=== PATIENT | male | born 1955 | race Caucasian/White ===

== ENCOUNTER → 2016-12-12 | Outpatient (CLI) | payer OTHER ==
--- NOTE | 2016-12-12 11:05 | RAD ---
HISTORY: Chest pain Study: Chest two-view Comparison: None Findings: The trachea is midline. The cardiac silhouette is unremarkable. The lungs are clear without focal infiltrate or effusion. The bony thorax is unremarkable. IMPRESSION: 1. No acute cardiopulmonary disease. Reported By:
== END ==
LOC: RAD 10:34
PROVIDERS: ATTEND Nurse Practitioner Family
DX: R07.89 Other chest pain (principal); R20.0 Anesthesia of skin
CPT/HCPCS: 71020

== ENCOUNTER 2016-12-19 11:18 | Observation (INO) | payer OTHER ==
[2016-12-19 13:34] LABS: BASOPHILS % (AUTO) 0.4 % (0.2-1.0); EOSINOPHILS # (AUTO) 0.1 x10^3/uL (0.0-0.2); EOSINOPHILS % (AUTO) 2.2 % (0.9-2.9); HEMATOCRIT 45.6 % (42.0-54.0); HEMOGLOBIN 15.8 g/dL (13.5-18.0); LYMPHOCYTES # (AUTO) 1.4 X10^3/uL (1.3-2.9); MEAN CORPUSCULAR HEMOGLOBIN 31.4 pg (27.0-34.0); MEAN CORPUSCULAR HGB CONC 34.6 g/dL (33.0-35.0); MEAN CORPUSCULAR VOLUME 90.9 fL (80.0-100.0); MEAN PLATELET VOLUME 9.4 fL (7.4-11.0); MONOCYTES # (AUTO) 0.6 x10^3/uL (0.3-0.8); MONOCYTES % (AUTO) 11.6 % (0.0-13.0); NEUTROPHILS # (AUTO) 3.1 x10^3/uL (2.2-4.8); NEUTROPHILS % (AUTO) 58.8 % (42.0-75.0); PLATELET COUNT 155 X10^3/uL (150.0-450.0); RED BLOOD COUNT 5.02 X10^6/uL (4.7-6.0); RED CELL DISTRIBUTION WIDTH 13.1 % (11.6-16.5); WHITE BLOOD COUNT 5.3 X10^3/uL (3.6-10.0)
[2016-12-19 13:45] LABS: ALANINE AMINOTRANSFERASE 112 Units/L (12-78); ALBUMIN 3.6 g/dL (3.4-5.0); ALKALINE PHOSPHATASE 109 Units/L (46-116); ASPARTATE AMINO TRANSFERASE 80 Units/L (15-37); BLOOD UREA NITROGEN 9 mg/dL (7-18); CALCIUM 8.9 mg/dL (8.5-10.1); CHLORIDE 107 mmol/L (98-107); CREATININE 0.94 mg/dL (0.70-1.30); GLUCOSE 105 mg/dL (65-99); MAGNESIUM 2.2 mg/dL (1.7-2.9); SODIUM 143 mmol/L (136-145); TOTAL PROTEIN 8.2 g/dL (6.4-8.2); eGFR BLACK RACES > 60 (>60); eGFR NON BLACK RACES > 60 (>60)
[2016-12-19 13:59] LABS: CREATINE KINASE 187 Units/L (39-308); CREATINE KINASE MB 1.9 ng/mL (0-4.0); TROPONIN I < 0.02 ng/mL (0-1.5)
[2016-12-19] MEDS: PROTONIX INJ 40 MG VIAL IVP SCH (14:00)
[2016-12-19 14:22] VITALS: BMI 26.6
[2016-12-19] MEDS ORDERED: PREVNAR 13 IM ONE ×2 (14:22→16:54)
--- NOTE | 2016-12-19 14:28 | RAD ---
History: Left chest wall pain Study: Portable AP upright chest Comparison: December 12, 2016 Findings there is no little change. There are mildly increased diffuse interstitial lung markings. T he heart size is normal. There is no edema or effusion. Impression: No evidence for acute cardiopulmonary disease Reported By:
[2016-12-19] MEDS ORDERED: NS 100 ML IV 100 ML IV ONE (15:34)
--- NOTE | 2016-12-19 16:53 | CT ---
History: Left chest wall pain Study: CTA chest with contrast. Sagittal and coronal MIPS of the pulmonary arteries were displayed. Findings: The lungs are clear and there is no pleural effusion or pneumothorax. No pulmonary embolus is demonstrated. The visualized upper abdomen is unremarkable. There is no mediastinal or hilar diego nopathy. The lungs are hyperinflated. No significant bony abnormality is demonstrated. Impression: 1. No evidence for pulmonary embolus 2. COPD Reported By:
[2016-12-19] MEDS ORDERED: XANAX PO PRN (18:33)
[2016-12-19] MEDS ORDERED: NORCO 10/325 TAB PO PRN (18:33)
--- NOTE | 2016-12-19 18:40 | DR.H&P ---
H&P - History & Physical for Day of: H&P Date: 12/19/16 - Chief Complaint Chief Complaint: CHEST PAIN - Allergies Allergies/Adverse Reactions: Allergies Allergy/AdvReac Type Severity Reaction Status Date / Time MS No Known Drug Allergy Allergy Verified 12/19/16 13:08 [No Known Drug Allergy] - History of Present Illness History of Present Illness: PT IS 61 [address] ADMITTED FROM DR LYNCH OFFICE AFTER PRESENTING WITH CO LEFT CHEST PAIN WITH COSTA. PT STATES PAIN IS CENTRAL AND RADIATES FROM LEFT SHOULDER THROUGH HIS PAIN AND LEFT ARM. PT HAS LEFT CHEST WALL TENDERNESS AND LEFT CHEST APPEARS ENLARGED COMPARED WITH RIGHT CHEST. PT HAS PRIOR LABS, EKG AND CXR WITHOUT ACUTE FINDINGS. PT WAS TREATED FOR MUSCULOSKELETAL PAIN WITHOUT IMPROVEMENT. PLAN TO ADMIT TO R/O CARDIAC RELATED CP. WILL MRI C SPINE AND LEFT SHOULDER DUE TO REFERRED LEFT SHOULDER AND NECK PAIN. PLAN TO ADMIT FOR SERIAL CE'S AND EKG'S, CTA CHEST RO PE - Past Medical History Past Medical History: COPD - Past Surgical History Surgical History: Ortho Surgery - Family History Family Medical History: Diabetes Mellitus, Cancer, [place], Coronary Artery Disease, Heart Failure, Hypertension - Social History Does patient currently use any type of tobacco product: Yes Have you used tobacco products in the last 12 months: Yes Type of Tobacco Use: Cigarettes How many years tobacco product used: 40 Does any household member use tobacco: Yes Alcohol Use: Occasionally Drug Use: None - Medications Home Medications: NK [NK] 12/19/16 [History Confirmed 12/19/16] - Review of Systems Constitutional: Weakness, Malaise Eyes: No Symptoms Reported ENT: No Symptoms Reported Respiratory: SOB with Excertion Cardiovascular: Chest Pain Gastrointestinal: No Symptoms Reported Genitourinary: No Symptoms Reported Musculoskeletal: Shoulder Pain, Neck Pain, Other (CHEST WALL PAIN) Skin: No Symptoms Reported Neurological: No Symptoms Reported - Physical Exam Vital Signs: Temperature 97.8 F Pulse Rate [Right Brachial] 60 Respiratory Rate 20 Blood Pressure [Right Arm] 122/70 O2 Sat by Pulse Oximetry 96 Oriented: Normal Eyes: Normal Ear: Normal Nose: Normal Throat: Normal Respiratory: Clear Throughout Cardiovascular: Normal : Normal Auscultation: Bowel Sounds: Normal Palpation: Normal Tenderness: Normal Skin: Normal Musculoskeletal: Tender (CSPINE, LEFT SHOULDER LEFT ANTERIOR CHEST WALL) Mood Description: Calm Speech Pattern: Clear - Assessment/Plan (1) Chest pain Qualifiers: Chest pain type: C Ischemic chest pain type: I Status: Acute Plan: ADMIT, CTA CHEST R/O PE. SERIAL CARDIAC ENZYMES, EKG'S. CBC CMP UA ON ADMISSION. 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 PAIN CONTROL, SOLU MEDROL IV X 3 DOSES (4) Left shoulder pain Qualifiers: Chronicity: C Status: Acute Plan: MRI LEFT SHOULDER
[2016-12-19 19:50] LABS: CREATINE KINASE 146 Units/L (39-308); CREATINE KINASE MB 1.5 ng/mL (0-4.0); TROPONIN I < 0.02 ng/mL (0-1.5)
[2016-12-19] MEDS ORDERED: COLACE CAP 100 MG PO SCH (21:00)
[2016-12-19] MEDS: SOLU-Medrol 125 MG VIAL IVP SCH ×2 (21:21→21:40)
[2016-12-20 01:27] LABS: CKMB % 0.9 % (<4); CREATINE KINASE 127 Units/L (39-308); CREATINE KINASE MB 1.2 ng/mL (0-4.0); TROPONIN I < 0.02 ng/mL (0-1.5)
[2016-12-20 05:24] LABS: CHOL/HDL RATIO 3.8 (0.0-5.0)
[2016-12-20] MEDS: SOLU-Medrol 125 MG VIAL IVP SCH (06:10)
[2016-12-20] MEDS: PROTONIX INJ 40 MG VIAL IVP SCH (09:55)
[2016-12-20 13:45] VITALS: BP 129/73
--- NOTE | 2016-12-20 15:42 | MRI ---
HISTORY: Neck pain with radiculopathy. Study: MRI cervical spine without contrast. Comparison: None. Technique: Multiplanar multisequence MRI of the cervical spine was obtained utilizing standard depar tmental protocol. Findings: The visualized posterior fossa appears normal. No cerebellar tonsillar ectopia. Multilevel disc vic ccation with mild/moderate disk height loss at C6-C7. Associated type 2 Modic endplate changes. The visualized bone marrow signal is otherwise normal. No acute fracture or listhesis. The visualized sp inal cord demonstrates normal course, caliber, and signal characteristics. C2 -- C3: No significant disc bulge, neural foraminal narrowing, or spinal canal stenosis. C3 -- C4: No significant disc bulge, neural foraminal narrowing, or spinal canal stenosis. C4 -- C5: Broad-based disk bulge with associated uncovertebral hypertrophy causing moderate bilatera l neural foraminal narrowing. Spinal canal stenosis to 10 mm. C5 -- C6: Broad-based disk bulge with associated uncovertebral hypertrophy causing mild bilateral ne ural foraminal narrowing. No significant spinal canal stenosis. C6 -- C7: Broad-based disk bulge with associated uncovertebral hypertrophy causing severe right and moderate left neural foraminal narrowing. Spinal canal stenosis to 11 mm. C7 -- T1: No significant disc bulge, neural foraminal narrowing, or spinal canal stenosis. IMPRESSION: Multilevel degenerative changes of the cervical spine, which are worse at C4 through C7 with broad-b ased disc bulges and associated uncovertebral hypertrophy causing mild to severe neural foraminal na rrowing. Multilevel spinal canal stenosis to 10 mm. Reported By:
--- NOTE | 2016-12-20 18:39 | MRI ---
MR left shoulder without contrast Indication: Left shoulder pain. Numbness and tingling. Technique: Multiplanar multi sequence imaging through the left shoulder without contrast. Comparison: Chest CT and radiographs from December 19, 2016 Findings: Bone marrow signal is normal with a type 2 acromion. Mild AC joint and glenohumeral joint DJD noted. Neurovascular structures appear normal. Small subacromial and subdeltoid bursal fluid not ed. Mild supraspinatus tendinosis seen. No large effusion seen. Minimal fraying of the footprint of the infraspinatus noted on coronal image 12. Small intrasubstance footprint tear possible. High sign al seen in superior glenoid labrum, see coronal images 11-8 suggesting small slap tear. Biceps 10 is probably intact with minimal tendinosis. Subscapularis is intact with minimal tendinosis. Impression: 1. Rotator cuff diffuse tendinosis with small focal footprint tear at the infraspinatus insertion guerrero ggested, probably intra substance. 2. Mild subacromial/subdeltoid bursitis. 3. Small slap tear is superior glenoid labrum. 3. Biceps tendinosis. Reported By:
== END 2016-12-20 14:30 | disposition home or self-care (01) ==
LOC: MED/SURG 11:18
PROVIDERS: ADMIT Internal Medicine; ATTEND Internal Medicine
PROC: 3E0234Z Introduction of Serum, Toxoid and Vaccine into Muscle, Percutaneous Approach (ICD-10-PCS; principal; 2016-12-19)
DX: R07.89 Other chest pain (principal); J44.9 Chronic obstructive pulmonary disease, unspecified; M25.512 Pain in left shoulder; M50.320 Other cervical disc degeneration, mid-cervical region, unspecified level; R06.09 Other forms of dyspnea; Z23 Encounter for immunization; S43.432A Superior glenoid labrum lesion of left shoulder, initial encounter; M75.52 Bursitis of left shoulder; X58.XXXA Exposure to other specified factors, initial encounter
CPT/HCPCS: 36415; 71010; 71275; 72141; 73221; 80053; 80061; 82550; 82553; 83735; 84484; 85025; 85378; 85610; 85730; 93005; 93010; 94760; A4216; C9113; 90670; G0378; J2930

== ENCOUNTER → 2016-12-26 | Outpatient (CLI) | payer OTHER ==
--- NOTE | 2016-12-26 14:49 | US ---
Examination: Bilateral diagnostic mammogram and left breast ultrasound. Clinical history: Left chest wall swelling. Technique: Multiple digital images of both breasts were obtained. Targeted left breast ultrasound wa s also obtained evaluating the area of clinical concern in the left breast. Comparison: None available. Findings: The breasts are composed predominantly of adipose tissue. A benign-appearing calcification is presen t in the left breast. No mammographic abnormality is evident in the area of clinical concern in the left breast. No suspicious mass, area of architectural distortion or suspicious cluster of microcalcifications is noted. Targeted left breast ultrasound evaluating the area of clinical concern in the superior medial aspec t of the left breast reveals a 4 mm echogenic structure with posterior acoustic shadowing seen at th e 11 o'clock position, correlating with a benign-appearing calcification seen in this location on th e mammogram. A mildly enlarged 0.5 x 0.6 x 0.8 cm benign-appearing fatty replaced left internal mammary chain lym ph node is also noted, likely reactive in nature to an inflammatory or infective process. Comparison with a CT angiogram of the chest dated 12/19/[address] correlate. No additional suspicious cystic or solid mass is noted. Impression: 1. Benign findings in the left breast, as described above. No mammographic or sonographic evidence o f malignancy. BI-RADS category 2-benign findings. Recommend clinical management. Diagnostic CAD was utilized and reviewed. * 0 (ZERO) - ASSESSMENT INCOMPLETE; ADDITIONAL IMAGING IS NEEDED. * 0C - ASSESSMENT INCOMPLETE, NEEDS ADDITIONAL IMAGING EVALUATION AND/OR PRIOR MAMMOGRAMS FOR COMPAR MARTY. * 1/1 (ONE) - NEGATIVE. * 2/II (TWO) - BENIGN FINDINGS. * 3/III (THREE) - PROBABLY BENIGN FINDING; SHORT INTERVAL FOLLOW-UP SUGGESTED. * 4/IV (FOUR) - SUSPICIOUS ABNORMALITY; BIOPSY SHOULD BE CONSIDERED. * 5/V - HIGHLY SUSPICIOUS OF MALIGNANCY; BIOPSY SHOULD BE PERFORMED. * 6/IV - KNOWN BIOPSY PROVEN MALIGNANCY-APPROPRIATE ACTION SHOULD BE TAKEN. A NEGATIVE X-RAY REPORT SHOULD NOT DELAY BIOPSY IF A DOMINANT OR CLINICALLY SUSPICIOUS MASS IS PRESENT; 4 TO 8 PERCENT OF CANCERS ARE NOT IDENTIFIED BY X-RAY. A NEGATIVE REPORT MAY REINFORCE THE CLINICAL IMPRESSION. ADENOSIS AND DENSE BREASTS MAY OBSCURE AN UNDERLYING NEOPLASM. Reported By:
== END | disposition home or self-care (01) ==
LOC: RAD 13:14
PROVIDERS: ATTEND Nurse Practitioner Family
DX: Z80.3 Family history of malignant neoplasm of breast (principal); R07.89 Other chest pain; R59.0 Localized enlarged lymph nodes
CPT/HCPCS: 76642; 77066

== ENCOUNTER 2017-10-13 21:27 | Emergency (ER) | payer OTHER ==
[2017-10-13 21:37] VITALS: BP 151/68; BMI 24.1
[2017-10-13] MEDS ORDERED: KEFLEX CAP 500 MG PO ONE ×2 (22:49→22:52)
--- NOTE | 2017-10-13 22:49 | DR.GENAD ---
HPI - PCP Primary Care Physician: BRIGIDO ONEAL - HPI Comment HPI Comment: PATIENT SAID IT HAPPEN BEFORE COMING TO ED. TD ONE YEAR AGO. - Complaint/Symptoms Chief Complaint Doctors Comments: CRUSH INJURY RT INDEX FINGER. 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 Chief Complaint:: CUT TIP OF FINGER ON MACHINE AT WORK Self Treatment fo Chief Complaint: 2 ALEVE - Nurses notes reviewed Nurses Notes Review: Yes - Source History Provided: Patient - Mode of Arrival Mode of Arrival: Ambulatory - Timing Onset of Chief Complaint: 10/13/17 Came on: Suddenly - Duration Duration: Constant Duration: Hours - Severity Severity: Moderate PMH - PMH Past Medical History: Yes Past Medical History: Anxiety, Depression, Migraines, Headaches Past Surgical History: Yes Surgical History: Ortho Surgery Past Surgical History Comment: LEFT KNEE X 2. BONE SPUR LEFT SHOULDER. LEFT PINKY FINGER. ARTHOSCOPY BILAT KNEE - Family History History of Family Medical Conditions: Yes Family Medical History: Diabetes Mellitus, [place], Sudden Cardiac , Hypertension - Social History Does patient currently use any type of tobacco product: Yes Have you used tobacco products in the last 12 months: Yes Type of Tobacco Use: Cigarettes Does any household member use tobacco: No Alcohol Use: None Do you use any recreational Drugs:: No Lives With: Alone Lives Where: Home - infectious screening In the last 2 months have you had wt loss of >10#?: NO Have you had fever, night sweats or hemotysis?: No Have you traveled outside the country in the last 6 months?: No Isolation: Standard ROS - Review of Systems Constitutional: No Symptoms Reported Eyes: No Symptoms Reported ENTM: No Symptoms Reported Respiratoy: No Symptoms Reported Cardiovascular: No Symptoms Reported Gastrointestinal/Abdominal: No Symptoms Reported Genitourinary: No Symptoms Reported Neurological: No Symptoms Reported Musculoskeletal: Right, Hand (INDEX FINGER, CRUSH INJURY.) Integumentary: Other (2CM LACERATION RT INDEX FINGER.) Hematologic/Lymphatic: No Symptoms Reported Endocrine: No Symptoms Reported All Other Systems: Reviewed and Negative PE - Vital Signs Vitals: Temperature 98.9 F Pulse Rate 57 Respiratory Rate 20 Blood Pressure [] 129/73 Blood Pressure 151/68 O2 Sat by Pulse Oximetry 98 - General Limitations: No Limitations General Appearance: Alert - Head Head Exam: Normal Inspection - Eyes Eye exam: Normal Appearance - ENT ENT Exam: Normal External Ear Exam External Ear Exam: Normal External Inspection TM/Canal Exam: Bilateral Normal Nose Exam: Normal Nose Exam Mouth Exam: Normal Inspection Throat Exam: Normal Inspection - Neck Neck Exam: Normal Inspection - Chest Chest Inspection: Symmetric Chest Wall Rise - Respiratory Respiratory Exam: Normal Lung Sounds Bilat Respiratory Exam: Bilateral Clear to Auscultation - Cardiovascular Cardiovascular Exam: Regular Rate, Normal Rhythm, Normal Heart Sounds - Abdominal Exam Abdominal Exam: Normal Inspection - Extremities Extremities Exam: Tenderness (RT INDEX FINGER DISTAL FINGER WITH NAIL BED INJURY AND LAC 2CM CORNER AREA OF NAIL. BLOOD UNDER NAIL.) - Back Back Exam: Normal Inspection - Neurologic Neurological Exam: Alert - Psychiatric Psychiatric Exam: Normal Affect, Normal Mood - Skin Skin Exam: Erythema MDM - Additional Information Additional Information Obtained From: Family - Differential Diagnosis Differential Diagnosis: CRUSH INJURY RT INDEX FINGER, FX RT INDEX FINGER, LACERATION RT INDEX FINGE Course - Treatment Treatment: SEE ORDERS, LACERTATION CLOSE. - Education/Counseling Education/Counseling: Patient, Family, Education Educated On: Treatment, Diagnosis, Needs for Follow Up ROR - XRAY XRAY Interpreted by: Self XRAY Findings: FINGER FRACTURE XRAY DISCUSS WITH PATIENT. Procedures - Laceration/Wound Repair Right Finger Wound Length (cm): 2 Wound's Depth, Shape: Linear Wound Explored: clean Betadine Prep?: Yes Anesthesia: 2% Lidocaine Volume Anesthetic (ccs): 3 Wound Debrided: minimal Wound Repaired With: sutures Suture Size/Type: 3:0, [place] Number of Sutures: 3 Layer Closure?: No Sterile Dressing Applied?: Yes Splint Applied?: Yes Sling Applied?: No - Diagnosis Discharge Problem: Crush injury Laceration of right index finger Qualifiers: Encounter type: initial encounter Damage to nail status: with damage Foreign body presence: with foreign body Qualified Code(s): S61.320A - Laceration with foreign body of right index finger with damage to nail, initial encounter - Discharge Plan Disposition: 01 HOME, SELF-CARE Condition: Stable Prescriptions: Cephalexin [KEFLEX CAP 500 MG *] 500 mg PO TID #30 cap Ibuprofen [MOTRIN TAB 800 MG *] 800 mg PO Q8H PRN #20 tab PRN Reason: Pain/Inflammation - Follow ups/Referrals Follow ups/Referrals: BRIGIDO ONEAL [Primary Care Provider] - 3 days - Instructions Instructions: Finger Fracture, [id number], Laceration Care, Adult, Easy-to- Read Additional Instructions: SUTURE OUT IN 10 DAYS.
[2017-10-13] MEDS ORDERED: MOTRIN TAB 800 MG PO ONE ×2 (22:50→22:52)
--- NOTE | 2017-10-14 01:04 | RAD ---
Right hand, three views Indication: Cut tip of finger on machine Comparison: None Findings: There is a soft tissue laceration to the distal index finger. There is mildly displaced ass ociated fracture of the distal phalanx of the index finger, extending transversely through the proxim al shaft. No radiopaque foreign body is identified. The remainder of the right hand is unremarkable. There is an age-indeterminate but possibly subacute intra-articular fracture of the distal radius. Impression: Soft tissue injury to the distal index finger with mildly associated fracture of the distal phalanx, as above. Age-indeterminate but possibly subacute fracture of the distal radius. Correlation recommended. Reported By:
== END 2017-10-13 23:42 | disposition home or self-care (01) ==
LOC: ER 21:48
PROC: 0XQNXZZ Repair Right Index Finger, External Approach (ICD-10-PCS; principal; 2017-10-13)
DX: S67.190A Crushing injury of right index finger, initial encounter (principal); S61.320A Laceration with foreign body of right index finger with damage to nail, initial encounter; W31.9XXA Contact with unspecified machinery, initial encounter; Y92.69 Other specified industrial and construction area as the place of occurrence of the external cause
CPT/HCPCS: 12001; 73130; 99283

== ENCOUNTER 2022-04-03 18:11 | Observation (INO) ==
[2022-04-03] MEDS ORDERED: NS 1,000 ML IV 1,000 ML IV ONE (18:28)
[2022-04-03] MEDS ORDERED: NS 1,000 ML IV 1,000 ML ONE (18:29)
[2022-04-03 18:41] LABS: BILIRUBIN,URINE NEGATIVE (NEGATIVE); BLOOD/HEMOGLOBIN,URINE NEGATIVE (NEGATIVE); GLUCOSE, URINE 4+ (NEGATIVE); KETONES,URINE NEGATIVE (NEGATIVE); LEUKOCYTE ESTERASE ,URINE NEGATIVE (NEGATIVE); NITRITES,URINE NEGATIVE (NEGATIVE); PROTEIN,URINE NEGATIVE (NEGATIVE); UROBILINOGEN,URINE NORMAL (NORMAL)
[2022-04-03 19:07] LABS: APPEARANCE,URINE CLEAR (CLEAR); COLOR,URINE YELLOW (YELLOW)
[2022-04-03] MEDS ORDERED: NovoLIN R (or HumuLIN R) SUBCUT PRN (19:50)
--- NOTE | 2022-04-03 19:53 | DR.HYPOGLY ---
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 He has polydipsia, polyuria, anorexia, blurred vision, and weight loss. He denies previous knowledge of being diabetic. Complaint Chief Complaint:: PT STATES MY BLOOD SUGAR IS HIGH > 500 AND BRIGIDO CALLED ME AND TOLD ME TO COME NOW, BR Self Treatment fo Chief Complaint: NONE COVID-19 Coronavirus risk:travel/contact w/high risk person: No Has patient experienced Coronavirus symptoms: No Source History Provided: Patient Mode of Arrival Mode of Arrival: Ambulatory Timing Onset of Chief Complaint: 01/16/22 PMH PMH Past Medical History: Yes Past Medical History: Alzheimers, Anxiety, Depression, Migraines and Headaches Past Surgical History: Yes Surgical History: Ortho Surgery Family History History of Family Medical Conditions: Yes Family Medical History: Diabetes Mellitus and Hypertension Social History Does patient currently use any type of tobacco product: No Have you used tobacco products in the last 12 months: No Type of Tobacco Use: None Does any household member use tobacco: No Alcohol Use: None Do you use any recreational Drugs:: No Lives With: Family Lives Where: Home Travel Risk Coronavirus risk:travel/contact w/high risk person: No Has patient experienced Coronavirus symptoms: No Infectious screening In the last 2 months have you had wt loss of >10#?: NO Have you had fever, night sweats or hemotysis?: No Have you traveled outside the country in the last 6 months?: No Isolation: Standard ROS Review of Systems Constitutional: See HPI Eyes: See HPI ENTM: See HPI Respiratoy: No Symptoms Reported Cardiovascular: No Symptoms Reported Gastrointestinal/Abdominal: No Symptoms Reported Genitourinary: See HPI Neurological: No Symptoms Reported Musculoskeletal: No Symptoms Reported Integumentary: No Symptoms Reported Hematologic/Lymphatic: No Symptoms Reported Endocrine: No Symptoms Reported Psychiatric: No Symptoms Reported All Other Systems: Reviewed and Negative PE Vital Signs Vitals: Temperature 96.5 F Pulse Rate 88 Respiratory Rate 20 Blood Pressure [Right Arm] 147/81 Blood Pressure 135/67 O2 Sat by Pulse Oximetry 94 General Limitations: No Limitations General Appearance: Alert and In No Apparent Distress Eyes Eye exam: Normal Appearance and EOMI ENT ENT Exam: Normal Exam, Normal Oropharynx, Normal External Ear Exam and Mucous Membranes Moist Neck Neck Exam: Normal Inspection, Full ROM and Trachea Midline Chest Chest Inspection: Normal Inspection and Symmetric Chest Wall Rise Respiratory Respiratory Exam: Normal Lung Sounds Bilat Cardiovascular Cardiovascular Exam: Regular Rate, Normal Rhythm, Normal Heart Sounds, +S1 and +S2 Abdominal Exam Abdominal Exam: Normal Inspection, Normal Bowel Sounds and Soft Extremities Extremities Exam: Normal Inspection and Full ROM Back Back Exam: Normal Inspection and Full ROM Neurologic Neurological Exam: Alert and Oriented X3 Psychiatric Psychiatric Exam: Normal Affect and Normal Mood Skin Skin Exam: Dry, Intact and Normal Color COURSE Treatment Treatment: his outpt. lab. data from this evening were reviewed with him. Recommendation is for in-house admission for work-up and treatment. He agrees to this. Clearance for admission was obtained from Dr. Irvin, who is on-call. Admit orders have been written. In the ED, IVF wasa started + 1 SSI dose given. Reevaluation 1st: Unchanged Education/Counseling Education/Counseling: Patient, Education and Counseling Educated On: Treatment, Diagnosis, Prognosis and Needs for Follow Up ROR Labs Reviewed Result Diagrams: 04/03/22 16:43 Laboratory: Hemoglobin A1c 12.5 % 04/03/22 18:25 Specimen Type Clean catch urine 04/03/22 18:27 Urine Color Yellow (YELLOW) 04/03/22 18:27 Urine Appearance Clear (CLEAR) 04/03/22 18:27 Urine pH 6.0 (5.0 - 8.0) 04/03/22 18:27 Ur Specific [place] 1.020 (1.000-1.030) 04/03/22 18:27 Urine Protein Negative (NEGATIVE) 04/03/22 18:27 Urine Glucose (UA) 4+ (NEGATIVE) 04/03/22 18:27 Urine Ketones Negative (NEGATIVE) 04/03/22 18:27 Urine Blood Negative (NEGATIVE) 04/03/22 18:27 Urine Nitrite Negative (NEGATIVE) 04/03/22 18:27 Urine Bilirubin Negative (NEGATIVE) 04/03/22 18:27 Urine Urobilinogen Normal (NORMAL) 04/03/22 18:27 Ur Leukocyte Esterase Negative (NEGATIVE) 04/03/22 18:27 Acetone, Semi-Quant Negative (NEGATIVE) 04/03/22 18:25 Opioid Opioid Risk Tool Age (Delta box if 16-45): No History of Preadolescent Sexual Abuse: No Total: 0 Total Score Risk Category: Low Risk Copyright: Martir LYNN predicting aberrant behaviors Discharge Plan Diagnosis Discharge Problem: New onset type 2 diabetes mellitus, Elevated LFTs Discharge Plan Patient Disposition: 09 ADMITTED INPATIENT Condition: Stable
[2022-04-03] MEDS ORDERED: SNACK - Diabetic Appropriate PO SCH (20:00)
[2022-04-03] MEDS ORDERED: NovoLIN R (or HumuLIN R) ONE (20:03)
[2022-04-03] MEDS ORDERED: NovoLIN R (or HumuLIN R) IV ONE (20:07)
[2022-04-03 20:44] LABS: ABG BASE EXCESS 2.2 mmol/L (-2.0-2.0); ABG HCO3 23.6 mmol/L (22-26)
[2022-04-03 20:45] LABS: ABG ALLEN TEST POS
[2022-04-03] MEDS ORDERED: K-RIDER 10 MEQ/NS 100 ML 10 MEQ/100 ML BAG IV PRN (23:34)
[2022-04-03] MEDS ORDERED: POTASSIUM CHLORIDE LIQ 20 MEQ UDC PO PRN (23:34)
[2022-04-03] MEDS ORDERED: MICRO K EXTEN CAP 10 MEQ PO PRN (23:34)
[2022-04-03] MEDS ORDERED: POTASSIUM CHL 60 MEQ/NS 0.45% 500 ML IV PRN (23:34)
[2022-04-03] MEDS ORDERED: POTASSIUM CHL 40 MEQ/NS 0.45% 500 ML IV PRN (23:34)
[2022-04-03] MEDS ORDERED: KLOR-CON PO PRN (23:34)
[2022-04-04 06:25] LABS: ALANINE AMINOTRANSFERASE 135 Units/L (12-78); ALBUMIN 2.5 g/dL (3.4-5.0); ALKALINE PHOSPHATASE 132 Units/L (46-116); ASPARTATE AMINO TRANSFERASE 116 Units/L (15-37); BLOOD UREA NITROGEN 7 mg/dL (7-18); CALCIUM 7.3 mg/dL (8.5-10.1); CARBON DIOXIDE 28.3 mmol/L (21-32); CHLORIDE 102 mmol/L (98-107); COR CA(FOR HYPOALB) 8.5 mg/dL (8.5-10.1); COR NA(FOR HYPERGLY) 140 mmol/L (136-145); CREATININE 0.76 mg/dL (0.70-1.30); SODIUM 136 mmol/L (136-145); TOTAL PROTEIN 6.9 g/dL (6.4-8.2); eGFR NON BLACK RACES > 60 (>60)
[2022-04-04 06:30] LABS: BASOPHILS # (AUTO) 0.1 X10^3/uL (0.0-0.1); BASOPHILS % (AUTO) 1.2 % (0.2-1.0); EOSINOPHILS # (AUTO) 0.1 x10^3/uL (0.0-0.2); EOSINOPHILS % (AUTO) 3.1 % (0.9-2.9); HEMATOCRIT 38.8 % (42.0-54.0); HEMOGLOBIN 13.7 g/dL (13.5-18.0); LYMPHOCYTES # (AUTO) 1.4 X10^3/uL (1.3-2.9); LYMPHOCYTES % (AUTO) 28.9 % (21.0-51.0); MEAN CORPUSCULAR HEMOGLOBIN 31.2 pg (27.0-34.0); MEAN CORPUSCULAR HGB CONC 35.3 g/dL (33.0-35.0); MEAN CORPUSCULAR VOLUME 88.5 fL (80.0-100.0); MEAN PLATELET VOLUME 9.4 fL (7.4-11.0); MONOCYTES # (AUTO) 0.5 x10^3/uL (0.3-0.8); MONOCYTES % (AUTO) 10.9 % (0.0-13.0); NEUTROPHILS # (AUTO) 2.7 x10^3/uL (2.2-4.8); NEUTROPHILS % (AUTO) 55.9 % (42.0-75.0); RED BLOOD COUNT 4.38 X10^6/uL (4.7-6.0); WHITE BLOOD COUNT 4.8 X10^3/uL (3.6-10.0)
--- NOTE | 2022-04-04 09:16 | RAD ---
HISTORYDOE, COPDSTUDYCHEST, PA/LAT ADULTCOMPARISONNoneFINDINGSThe cardiomediastinal silhouette is normal in size. No acute airspace disease. No pneumothorax or effusion. The bony thorax appears intact.IMPRESSIONNo acute cardiopulmonary disease.Electronically signed by: NICK MARQUES (Apr 04, 2022 09:14:46)
[2022-04-04 09:26] LABS: FREE T4 (FREE THYROXINE) 1.28 ng/dL (0.76-1.46); TSH (3RD GENERATION) 1.64 uIU/mL (0.358-3.74)
[2022-04-04] MEDS: PROTONIX INJ 40 MG VIAL IVP SCH (10:44)
[2022-04-04] MEDS ORDERED: NS 250 ML IV 250 ML IV ONE (13:33)
[2022-04-04] MEDS: NICOTINE PATCH TD SCH (13:42)
[2022-04-04] MEDS: K-DUR TAB 20 MEQ PO PRN ×2 (13:44→18:20)
[2022-04-04] MEDS: MAGNESIUM SULFATE 1 GRAM/100 mL PREMIX 1 G/100 ML BAG IV PRN ×2 (13:45→16:33)
[2022-04-04] MEDS: NovoLIN R (or HumuLIN R) SC PRN ×2 (16:40→22:12)
--- NOTE | 2022-04-04 18:04 | DR.H&P ---
H&P - History & Physical for Day of: H&P Date: 04/03/22 - Chief Complaint Chief Complaint: ELEVATED BLOOD SUGAR - History of Present Illness History of Present Illness: PT IS 67 WM ER ADMISSON AFTER PRESENTING WITH CO CRITICAL LABS VALUE OF ELEVATED GLUCOSE WITH NO KNOWN DIABETES. PT WAS SEEN IN PCP OFFICE FOR CO WEIGHT LOSS AND LEFT UPPER ABDOMINAL PAIN WITH NAUSEA WORSE FOR 2-3 WEEKS. PT REPORTS HE HAD STEROID SHOT IN RIGHT SHOULDER PER ORTHO FOR OA RECENTLY OTHERWISE NO NEW MEDICATION CHANGES. PT REPORTS HE IS DAILY SMOKER AND PREVIOUSLY CONSUMED BEER ON A DAILY BASIS BUT HAS QUIT FOR SEVERAL WEEKS. PT ADMITTED FOR TREATMENT AND EVALUATION OF ACUTE ILLNESS AND NEW ONSET DIABETES. - Past Medical History Past Medical History: Alzheimers, Anxiety, COPD, Depression, Migraines, Headaches - Past Surgical History Surgical History: Ortho Surgery - Family History Family Medical History: Diabetes Mellitus, Cancer, [place], Hypertension - Social History Does patient currently use any type of tobacco product: No Have you used tobacco products in the last 12 months: Yes Type of Tobacco Use: Cigarettes Does any household member use tobacco: No Alcohol Use: Occasionally (LAST BEER INTAKE >2 WEEKS AGO) Drug Use: None Risks, benefits, and alternatives of opioids discussed: Yes Prescription drug monitoring program results: PDMP reviewed and no concerns identified - Medications Home Medications: No Known Drug Allergies Allergy (Verified 01/23/19 13:09) CONTINUE taking the following medications ascorbic acid (vitamin C) 1,000 mg tablet (Vitamin C) 1,000 mg PO DAILY 04/04/22 [History] cholecalciferol (vitamin D3) 50 mcg (2,000 unit) tablet (Vitamin D3) 50 mcg PO DAILY 04/04/22 [History] famotidine 40 mg tablet 40 mg PO HS 04/04/22 [History] meloxicam 7.5 mg tablet 7.5 mg PO DAILY 04/04/22 [History] - Review of Systems Constitutional: Weakness, Malaise Eyes: Vision Change ENT: No Symptoms Reported Respiratory: No Symptoms Reported Cardiovascular: No Symptoms Reported Gastrointestinal: Nausea, Vomiting, Abdominal Pain Genitourinary: Frequency Musculoskeletal: Shoulder Pain Skin: No Symptoms Reported Neurological: Weakness - Physical Exam Vital Signs: Temperature 99.3 F Pulse Rate [Right Brachial] 73 Pulse Rate 88 Respiratory Rate 20 Blood Pressure [Left Arm] 100/71 Blood Pressure [Right Arm] 147/81 Blood Pressure 135/67 O2 Sat by Pulse Oximetry 99 Oriented: Normal Eyes: Normal Ear: Normal Nose: Normal Throat: Normal Respiratory: Wheezes Throughout (MILD UPPER EXPIRATORY WHEEZES), RLL Diminished, LLL Diminished Cardiovascular: Normal : Normal Auscultation: Bowel Sounds: Normal Palpation: Normal Tenderness: Diffuse, LUQ, LLQ Skin: Decreased Turgur Musculoskeletal: Right, Shoulder Psychiatric: Depression Mood Description: Calm Affect: Depressed Speech Pattern: Clear, Appropriate - Assessment/Plan (1) Diabetes mellitus, new onset Status: Acute Plan: ADMIT, ABG AND SERUM ACETONE OBTAINED IN ER ON ADMISSION. GENTLE IV HYDRATION, STRICT I&OS. PPI THERAPY, CT ABD/PELVIS WITH CONTRAST, NPO AFTER MIDNIGHT. BLOOD SUGAR CONTROL. BP AND CARDIAC MONITORING. VERIFY HOME MEDICATION, AMYLAST AND LIPASE ON ADMISSION (2) Abdominal pain Status: Acute (3) COSTA (dyspnea on exertion) Status: Acute (4) Elevated LFTs Status: Acute - Allergies Allergies/Adverse Reactions: Allergies Allergy/AdvReac Type Severity Reaction Status Date / Time No Known Drug Allergies Allergy Verified 01/23/19 13:09
[2022-04-04] MEDS: NS 1,000 ML IV 1,000 ML IV SCH (18:26)
[2022-04-04] MEDS ORDERED: SNACK - Diabetic Appropriate PO SCH (20:00)
[2022-04-04] MEDS ORDERED: LEVEMIR SC SCH (21:00)
[2022-04-05 05:24] LABS: BASOPHILS # (AUTO) 0.1 X10^3/uL (0.0-0.1); BASOPHILS % (AUTO) 1.4 % (0.2-1.0); EOSINOPHILS # (AUTO) 0.1 x10^3/uL (0.0-0.2); EOSINOPHILS % (AUTO) 3.1 % (0.9-2.9); HEMATOCRIT 40.6 % (42.0-54.0); HEMOGLOBIN 13.8 g/dL (13.5-18.0); LYMPHOCYTES # (AUTO) 1.2 X10^3/uL (1.3-2.9); LYMPHOCYTES % (AUTO) 25.6 % (21.0-51.0); MEAN CORPUSCULAR HEMOGLOBIN 30.5 pg (27.0-34.0); MEAN CORPUSCULAR VOLUME 89.7 fL (80.0-100.0); MEAN PLATELET VOLUME 8.9 fL (7.4-11.0); MONOCYTES # (AUTO) 0.5 x10^3/uL (0.3-0.8); MONOCYTES % (AUTO) 10.8 % (0.0-13.0); NEUTROPHILS # (AUTO) 2.8 x10^3/uL (2.2-4.8); NEUTROPHILS % (AUTO) 59.1 % (42.0-75.0); RED BLOOD COUNT 4.52 X10^6/uL (4.7-6.0); WHITE BLOOD COUNT 4.7 X10^3/uL (3.6-10.0)
[2022-04-05 05:25] LABS: ALANINE AMINOTRANSFERASE 142 Units/L (12-78); ALBUMIN 2.6 g/dL (3.4-5.0); ALKALINE PHOSPHATASE 188 Units/L (46-116); ASPARTATE AMINO TRANSFERASE 124 Units/L (15-37); BLOOD UREA NITROGEN 7 mg/dL (7-18); CALCIUM 7.3 mg/dL (8.5-10.1); CARBON DIOXIDE 27.5 mmol/L (21-32); CHLORIDE 102 mmol/L (98-107); COR CA(FOR HYPOALB) 8.4 mg/dL (8.5-10.1); COR NA(FOR HYPERGLY) 139 mmol/L (136-145); CREATININE 0.83 mg/dL (0.70-1.30); MAGNESIUM 1.8 mg/dL (1.7-2.9); SODIUM 135 mmol/L (136-145); TOTAL PROTEIN 7.2 g/dL (6.4-8.2); eGFR NON BLACK RACES > 60 (>60)
[2022-04-05] MEDS: K-DUR TAB 20 MEQ PO PRN (05:41)
[2022-04-05] MEDS: MAGNESIUM SULFATE 1 GRAM/100 mL PREMIX 1 G/100 ML BAG IV PRN ×2 (05:41→07:16)
[2022-04-05] MEDS: NovoLIN R (or HumuLIN R) SC PRN ×2 (05:42→11:37)
[2022-04-05] MEDS: PROTONIX INJ 40 MG VIAL IVP SCH (08:51)
[2022-04-05] MEDS: NICOTINE PATCH TD SCH (08:52)
[2022-04-05] MEDS: NS 1,000 ML IV 1,000 ML IV SCH (08:58)
[2022-04-05 09:49] VITALS: BMI 20.7
[2022-04-05 11:21] VITALS: BP 134/77
== END 2022-04-05 12:27 | disposition home or self-care (01) ==
LOC: ER 18:11 → MED/SURG 18:11
PROVIDERS: ADMIT Internal Medicine; ATTEND Internal Medicine
DX: E87.6 Hypokalemia; R91.1 Solitary pulmonary nodule; R06.09 Other forms of dyspnea; Z79.899 Other long term (current) drug therapy; E11.65 Type 2 diabetes mellitus with hyperglycemia; E83.42 Hypomagnesemia; K21.9 Gastro-esophageal reflux disease without esophagitis; E87.1 Hypo-osmolality and hyponatremia; K52.89 Other specified noninfective gastroenteritis and colitis; R94.5 Abnormal results of liver function studies; Z72.0 Tobacco use; J44.9 Chronic obstructive pulmonary disease, unspecified; R93.2 Abnormal findings on diagnostic imaging of liver and biliary tract; R10.12 Left upper quadrant pain; M19.011 Primary osteoarthritis, right shoulder; R35.89 Other polyuria